=== PATIENT | female | born 1985 | race Caucasian/White ===

== ENCOUNTER 2019-06-10 10:34 | Day surgery (SDC) | payer OTHER ==
[2019-06-10] VITALS (10 sets, daily range): BP systolic 81–106; BP diastolic 42–82; PULSE 103–113; TEMP 97.5–98.6
[~2019-06-10] VITALS: Ht 165.1 cm; Wt 80.2 kg
[2019-06-10] MEDS ORDERED: PERCOCET 325 MG1 TA2 PO (12:08)
[2019-06-10] MEDS ORDERED: LEXAPRO20 MG PO (12:09)
[2019-06-10] MEDS ORDERED: KLONOPIN 1MG1 MG PO (12:10)
[2019-06-10] MEDS ORDERED: NEURONTIN100 MG/CAP PO ×2 (12:11→14:47)
[2019-06-10] MEDS ORDERED: PRINIVIL10 MG PO (12:12)
[2019-06-10] MEDS ORDERED: ZYRTEC 10MG10 MG PO (12:13)
[2019-06-10] MEDS ORDERED: SINGULAIR 110 MG/TAB PO (12:14)
[2019-06-10] MEDS ORDERED: BUSPAR5 MG PO (12:16)
[2019-06-10] MEDS ORDERED: FLONASEALLERGY NS (12:17)
[2019-06-10] MEDS ORDERED: FLEXERIL 1010 MG/TAB PO (12:18)
[2019-06-10] MEDS ORDERED: VOLTAREN 75 DR75 MG PO (12:19)
[2019-06-10] MEDS ORDERED: DDAVP NAS (12:21)
[2019-06-10] MEDS ORDERED: PERCOCET 325 MG1 TA3 PO (14:46)
[2019-06-10] MEDS ORDERED: MOTRIN 600600 MG/TAB PO (14:50)
--- NOTE | 2019-06-10 17:00 | NUR ---
Patient up from OR alert and oriented x 3. Spouse at bedside. Dressing to chest is CDI. EDITH to bilateral chest with bloody drainage present. Patient states dressing feels tight. Educated patient on dressing. Post op VSS. Denies pain at this time. Denies further needs at this time. SCDs to BLE.
--- NOTE | 2019-06-10 17:51 | NUR ---
Notified Dr. Manriquez. Patient having low BPs sbp at 90's dbp at 40's. Increased fluid rate and added bolus per orders.
--- NOTE | 2019-06-10 22:15 | NUR ---
PATIENTS BOLUS FINISHED. FLUIDS RUNNING AT 125 ML/HR. BP STILL LOW AT 88/50. DR. MAIN CALLED AND INFORMED. STATED IT WAS OKAY TO STILL GIVE PERCOCET AND DILAUDID FOR PAIN AND TO MONITOR HER BP. BP STILL LOW AT 88/54. WILL CONTINUE TO MONITOR.
--- NOTE | 2019-06-11 01:37 | NUR ---
patient resting in bed. c/o increased pain throughout the night. states dilaudid helps pain better than percocet. BP still running 90s/60s. Dr. corley informed, will continue to monitor per orders. dark bloody drainage from EDITH drains. JOSE M wrap in place across chest. IV to L wrist patent with fluids running. patient up to bathroom and had unmeasured void. 2 L O2 via NC. no further needs at this time. will continue to monitor.
[2019-06-11 02:13] VITALS: BP 93/67
[2019-06-11 03:21] VITALS: BP 96/59; PULSE 113; TEMP 98
--- NOTE | 2019-06-11 08:00 | NUR ---
Paient in bed resting, alert and oriented x 3. Shift assessment complete. JOSE M wrap to chest is CDI. EDITH drains x2 with bloody drainage present. States pain 7/10 to incisions on chest. Medications given per orders. Spouse at bedside. Patient denies further needs at this time.
[2019-06-11 08:12] VITALS: BP 129/67; PULSE 102; TEMP 99.1
--- NOTE | 2019-06-11 09:20 | NUR ---
Notified Dr. Woods, patient took home medications, klonopin and buspar. Patient also complaining of back pain and reflux. Would like flexeril restarted and states tums is not working for heartburn. New order for prilosec given.
--- NOTE | 2019-06-11 11:40 | NUR ---
Discharge education provided to patient. Educated on signs and symptoms of infection. Patient educated on how to care for EDITH drains and to record output. Patient demonstrated back teaching. Educated on all new medications and medication safety. INT to left wrist discontinued. All questions answered. Patient out by wheelchair with spouse and surgical staff.
== END 2019-06-11 11:40 | disposition home or self-care (01) ==
LOC: SDCO 10:34 → SURG 17:08 → SDCO 06-11 11:40
DX: Z15.01 Genetic susceptibility to malignant neoplasm of breast (principal); I10 Essential (primary) hypertension; Z15.02 Genetic susceptibility to malignant neoplasm of ovary; D64.9 Anemia, unspecified; F32.9 Major depressive disorder, single episode, unspecified; F41.9 Anxiety disorder, unspecified; N97.9 Female infertility, unspecified; Z80.3 Family history of malignant neoplasm of breast; Z83.3 Family history of diabetes mellitus; F17.210 Nicotine dependence, cigarettes, uncomplicated; Z88.2 Allergy status to sulfonamides; J30.2 Other seasonal allergic rhinitis; G89.29 Other chronic pain
CPT/HCPCS: OP; J0690; J1100; J1170; J1885; J2405; J2704; J3010; J7120; L8600

== ENCOUNTER 2020-01-02 06:05 | Day surgery (SDC) | payer OTHER ==
[~2020-01-02] VITALS: Ht 165.1 cm; Wt 94.1 kg
[~2020-01-02 06:05] MED LIST: BUSPAR DIVIDOSE15 MG PO; DDAVP 0.01% NASA5 ML NS; FLEXERIL 1010 MG/TAB PO; FLONASEALLERGY NS; KLONOPIN 1MG1 MG PO; LEXAPRO 10MG10 MG PO; MOTRIN 600600 MG/TAB PO; NEURONTIN100 MG/CAP PO; PERCOCET 325 MG1 TA2 PO; PERCOCET 325 MG1 TA3 PO; PRINIVIL10 MG PO; SINGULAIR 110 MG/TAB PO; VOLTAREN 75 DR75 MG PO; ZYRTEC 10MG10 MG PO
[2020-01-02] MEDS ORDERED: KLONOPIN 1MG1 MG PO (06:48)
[2020-01-02] MEDS ORDERED: NEURONTIN100 MG/CAP PO (06:51)
[2020-01-02] MEDS ORDERED: PERCOCET 325 MG1 TA2 PO (06:53)
[2020-01-02 07:07] VITALS: BP 116/69; PULSE 106; TEMP 98.4
[2020-01-02 09:10] VITALS: BP 93/60; PULSE 100; TEMP 98
--- NOTE | 2020-01-02 09:10 | NUR ---
Patient arrives back to [facility] alert, denies nausea, complains of pain in left breast 12/27. Patient monitor applied, vitals stable. Patient's spouse at bedside. Patient given muffins and water. Oxygen 2L per NC intact. Dressing clean/dry/intact, no drainage noted on dressing.
[2020-01-02 09:25] VITALS: BP 84/66; PULSE 104
[2020-01-02 09:40] VITALS: BP 101/72; PULSE 103
--- NOTE | 2020-01-02 09:45 | NUR ---
Patient tolerates muffins and water without any nausea, reports pain 5/10 in left breast area.
--- NOTE | 2020-01-02 10:00 | NUR ---
Oxygen therapy turned off at this time.
[2020-01-02 10:10] VITALS: BP 102/59; PULSE 107
--- NOTE | 2020-01-02 10:10 | NUR ---
Patient reports pain is much better at this time and rates it at a 2/10. Patient states she is ready to go home and rest in her own bed.
--- NOTE | 2020-01-02 10:20 | NUR ---
Dismissal instructions gone over with patient and patient's spouse. Both verbalize understanding and all questions answered.
--- NOTE | 2020-01-02 10:30 | NUR ---
Patient discharged to private vehicle at patient enterance via wheelchair. Patient and spouse leave thanking staff for services.
== END 2020-01-02 10:30 | disposition home or self-care (01) ==
LOC: SDCO 06:05
DX: T85.49XA Other mechanical complication of breast prosthesis and implant, initial encounter (principal); J30.2 Other seasonal allergic rhinitis; I10 Essential (primary) hypertension; G89.29 Other chronic pain; F32.9 Major depressive disorder, single episode, unspecified; F41.9 Anxiety disorder, unspecified; E06.3 Autoimmune thyroiditis; Z88.2 Allergy status to sulfonamides; Z90.49 Acquired absence of other specified parts of digestive tract
CPT/HCPCS: J0690; J1100; J1170; J1885; J2250; J2405; J2704; J2795; J3010; J7120; L8600